=== PATIENT | male | born 1965 | race Caucasian/White ===

== ENCOUNTER 2016-10-01 05:40 | Emergency (ER) | payer BC ==
[~2016-10-01] VITALS: Ht 170.2 cm; Wt 59.1 kg
[~2016-10-01 05:40] MED LIST: ADVIL200 MG PO; ENDOCET 5-3251 EACH PO; FLOMAX0.4 MG PO; PROTONIX40 MG PO; TORADOL10 MG PO; ZOFRAN ODT4 MG PO
[2016-10-01 06:16] LABS: HEMATOCRIT 45.6 % (38.0-50.0); MCH 27.6 PG (29.0-34.0); MCHC 32.5 G/DL (30.0-36.0); MCV 84.9 FL (86-99); MEAN PLAT.VOLUME 8.5 uM^3 (9.0-12.4); PLATELET COUNT 322 K/uL (156-360); RBC DIS.WIDTH-CV 12.4 % (11.8-14.6); RBC DIS.WIDTH-SD 38.2 % (39-53); RED BLOOD COUNT 5.37 M/uL (4.00-5.50); WHITE BLOOD COUNT 11.3 K/uL (4.1-10.2)
[2016-10-01 06:30] LABS: CHLORIDE 109 mEq/L (99-109); POTASSIUM 4.8 mEq/L (3.7-5.4); SODIUM 142 mEq/L (136-147)
[2016-10-01 06:31] LABS: GLUCOSE 138 mg/dL (70-99)
[2016-10-01 06:33] LABS: ANION GAP 8 MEQ/L (2-14)
[2016-10-01 06:35] LABS: GFR ESTIMATE (CALCULATED) > 59 mL/min/
[2016-10-01 06:36] LABS: UREA NITROGEN (BUN) 20 mg/dL (9-23)
[2016-10-01 08:14] LABS: ADD MIUA? YES; BILIRUBIN NEGATIVE; BLOOD LARGE; COLOR YELLOW ((YELLOW)); GLUCOSE (STRIP) NEGATIVE; KETONES NEGATIVE; LEUKOCYTES NEGATIVE; NITRITE NEGATIVE; PROTEIN (STRIP) 30; SPECIFIC GRAVITY 1.015 (1.000-1.030); UROBILINOGEN 0.2 MG/DL (0.2-1.0)
[2016-10-01 08:23] LABS: BACTERIA NONE SEEN /HPF; EPITHELIAL CELLS NONE SEEN /HPF; HYALINE CASTS 0-5 /LPF; MUCUS TRACE /LPF; RED BLOOD CELLS TNTC /HPF (0-5); UCUL ADDED? NO; WHITE BLOOD CELLS 0-5 /HPF (0-5)
[2016-10-01] MEDS ORDERED: PERCOCET 5/31 TABLET PO (10:10)
[2016-10-01] MEDS ORDERED: ZOFRAN ODT4 MG PO (10:10)
[2016-10-01 10:33] VITALS: BP 113/67
== END 2016-10-01 10:34 | disposition home or self-care (01) ==
LOC: EME 05:40
DX: N13.2 Hydronephrosis with renal and ureteral calculous obstruction (principal); R11.2 Nausea with vomiting, unspecified; K21.9 Gastro-esophageal reflux disease without esophagitis; Z87.442 Personal history of urinary calculi
CPT/HCPCS: 74176; 80048; 81003; 85027; 99281; 99285; J1885; J2405; J7030